=== PATIENT | male | born 1935 | race Caucasian/White ===

== ENCOUNTER 2017-02-17 08:20 | Emergency (ER) | payer OTHER ==
[~2017-02-17] VITALS: Ht 172.7 cm; Wt 75.1 kg
[~2017-02-17 08:20] MED LIST: AMBIEN10 MG PO; ATENOLOL25 MG PO; CLEOCIN HCL150 MG PO; LAC PO; LEVAQUIN750 MG PO; LISINOPRIL20 MG PO; MAGNESIUM OXID400 MG PO; [UNRECOGNIZED DRUG - OTHER] PO
[2017-02-17 09:16] LABS: PLATELET COUNT 310 x10^3mcL (130-400); RED CELL DISTRIBUTION WIDTH 14.2 % (11.5-14.5)
[2017-02-17 09:20] LABS: BASOPHIL % 2.2 % (0-2)
[2017-02-17 09:34] LABS: ALKALINE PHOSPHATASE 53 U/L (46-116); ALT/SGPT 14 U/L (16-63); AST/SGOT 13 U/L (15-37); BILIRUBIN TOTAL 0.3 mg/dL (0.20-1.00); CALCIUM 9.4 mg/dL (8.5-10.1); CARBON DIOXIDE 29.4 mmol/L (21-32); CHLORIDE SERUM 105 mmol/L (98-107); CHOLESTEROL 192 mg/dL (<200); CREATININE SERUM 0.9 mg/dL (0.7-1.3); GLUCOSE SERUM 104 mg/dL (74-106); HDL CHOLESTEROL 49 mg/dL (40-60); MAGNESIUM 1.8 mg/dL (1.8-2.4); POTASSIUM SERUM 3.9 mmol/L (3.5-5.1); SODIUM SERUM 143 mmol/L (136-145); TOTAL PROTEIN, SERUM 6.8 g/dL (6.4-8.2)
[2017-02-17 09:38] LABS: ALBUMIN 3.3 g/dL (3.4-5.0)
[2017-02-17 09:45] LABS: AMPHETAMINE QUAL UR NONE DETECTED (NEG <=1000)
[2017-02-17 11:12] VITALS: BP 131/91
== END 2017-02-17 11:12 | disposition home or self-care (01) ==
LOC: ED 08:20
PROVIDERS: Emergency Medicine
DX: R42 Dizziness and giddiness (principal); H53.8 Other visual disturbances; I10 Essential (primary) hypertension
CPT/HCPCS: 83880; J8597

== ENCOUNTER 2017-03-21 14:38 | Emergency (ER) | payer OTHER ==
[~2017-03-21] VITALS: Ht 172.7 cm; Wt 77.1 kg
[2017-03-21 16:54] VITALS: BP 131/88
== END 2017-03-21 16:54 | disposition home or self-care (01) ==
LOC: ED 14:38
DX: S05.02XA Injury of conjunctiva and corneal abrasion without foreign body, left eye, initial encounter (principal); S05.01XA Injury of conjunctiva and corneal abrasion without foreign body, right eye, initial encounter; I10 Essential (primary) hypertension; X58.XXXA Exposure to other specified factors, initial encounter; Y93.89 Activity, other specified; Y99.8 Other external cause status; Y92.89 Other specified places as the place of occurrence of the external cause
CPT/HCPCS: J7030; V2632

== ENCOUNTER 2017-07-25 14:26 | Inpatient (IN) | payer OTHER ==
[~2017-07-25] VITALS: Ht 167.6 cm; Wt 78.6 kg
[2017-07-25 15:12] LABS: BASOPHIL % 0.3 % (0-2); PLATELET COUNT 244 x10^3mcL (130-400)
[2017-07-25 15:16] LABS: CALCIUM 8.4 mg/dL (8.5-10.1); CARBON DIOXIDE 27.4 mmol/L (21-32); CHLORIDE SERUM 106 mmol/L (98-107); CREATININE SERUM 0.9 mg/dL (0.7-1.3); GLUCOSE SERUM 111 mg/dL (74-106); POTASSIUM SERUM 3.9 mmol/L (3.5-5.1); SODIUM SERUM 140 mmol/L (136-145)
[2017-07-25 15:17] LABS: RED CELL DISTRIBUTION WIDTH 14.6 % (11.5-14.5)
[2017-07-25 15:21] LABS: ALKALINE PHOSPHATASE 59 U/L (46-116); ALT/SGPT 25 U/L (16-63); AST/SGOT 21 U/L (15-37); BILIRUBIN TOTAL 0.7 mg/dL (0.20-1.00); TOTAL PROTEIN, SERUM 6.6 g/dL (6.4-8.2)
[2017-07-25 15:26] LABS: ALBUMIN 2.9 g/dL (3.4-5.0)
[2017-07-25 16:54] VITALS: BP 130/71
[2017-07-25 17:59] VITALS: BP 130/71
[2017-07-25 18:11] LABS: T3 TOTAL 0.92 ng/mL
[2017-07-25 18:12] LABS: MAGNESIUM 1.8 mg/dL (1.8-2.4); PHOSPHOROUS 2.1 mg/dL (2.5-4.9)
[2017-07-25 18:13] LABS: CHOLESTEROL/HDL RATIO 3.6
[2017-07-25 18:16] LABS: FREE T4 1.14 ng/dL (0.76-1.46); T4(THYROXINE) 8.1 ug/dL (4.7-13.3)
[2017-07-25 18:29] VITALS: BP 130/71
[2017-07-25 21:02] VITALS: BP 125/68
[2017-07-25 21:58] LABS: UA SPECIFIC GRAVITY 1.015 (1.005-1.035); microscopic required? YES; urine erythrocyte NEGATIVE (NEGATIVE)
[2017-07-26 05:48] VITALS: BP 116/62
[2017-07-26 06:28] LABS: CALCIUM 8.3 mg/dL (8.5-10.1); CARBON DIOXIDE 29.5 mmol/L (21-32); CHLORIDE SERUM 109 mmol/L (98-107); CREATININE SERUM 0.9 mg/dL (0.7-1.3); GLUCOSE SERUM 110 mg/dL (74-106); MAGNESIUM 1.9 mg/dL (1.8-2.4); PHOSPHOROUS 2.5 mg/dL (2.5-4.9); POTASSIUM SERUM 4.2 mmol/L (3.5-5.1); SODIUM SERUM 143 mmol/L (136-145)
[2017-07-26 06:29] LABS: BASOPHIL % 0.2 % (0-2); PLATELET COUNT 219 x10^3mcL (130-400)
[2017-07-26 06:44] LABS: RED CELL DISTRIBUTION WIDTH 15.5 % (11.5-14.5)
[2017-07-26 10:00] VITALS: BP 128/59
[2017-07-26 10:38] VITALS: Ht 167.6 cm; Wt 78.6 kg
[2017-07-27 07:50] LABS: BASOPHIL % 0.2 % (0-2); PLATELET COUNT 242 x10^3mcL (130-400)
[2017-07-27 07:58] LABS: CALCIUM 9.1 mg/dL (8.5-10.1); CARBON DIOXIDE 27.4 mmol/L (21-32); CHLORIDE SERUM 104 mmol/L (98-107); CREATININE SERUM 0.9 mg/dL (0.7-1.3); GLUCOSE SERUM 94 mg/dL (74-106); MAGNESIUM 1.7 mg/dL (1.8-2.4); PHOSPHOROUS 2.3 mg/dL (2.5-4.9); POTASSIUM SERUM 3.9 mmol/L (3.5-5.1); SODIUM SERUM 139 mmol/L (136-145)
[2017-07-27 08:08] LABS: RED CELL DISTRIBUTION WIDTH 15.4 % (11.5-14.5)
== END 2017-07-26 11:35 | disposition left against medical advice (07) | DRG 177 ==
LOC: ED 14:26 → DU 15:54
PROVIDERS: Emergency Medicine; Family Medicine; ADMIT Family Medicine
DX: J69.0 Pneumonitis due to inhalation of food and vomit (principal); J96.00 Acute respiratory failure, unspecified whether with hypoxia or hypercapnia; N17.0 Acute kidney failure with tubular necrosis; E87.1 Hypo-osmolality and hyponatremia; E44.0 Moderate protein-calorie malnutrition; E83.42 Hypomagnesemia; E83.39 Other disorders of phosphorus metabolism; R73.03 Prediabetes; E86.0 Dehydration; E87.8 Other disorders of electrolyte and fluid balance, not elsewhere classified; R31.9 Hematuria, unspecified; D64.9 Anemia, unspecified; Z68.28 Body mass index [BMI] 28.0-28.9, adult
CPT/HCPCS: 36600; 83880; 84439; J1956; J3490; J7030; J7613; J7620; J7644

== ENCOUNTER 2017-07-26 13:30 | Emergency (ER) | payer OTHER ==
[2017-07-26 16:45] LABS: microscopic required? YES; urine erythrocyte 1+ (NEGATIVE)
[2017-07-26 16:51] LABS: BASOPHIL % 0.2 % (0-2); PLATELET COUNT 229 x10^3mcL (130-400)
[2017-07-26 16:52] LABS: RED CELL DISTRIBUTION WIDTH 15.1 % (11.5-14.5)
[2017-07-26 17:04] LABS: CARBON DIOXIDE 25.2 mmol/L (21-32); CHLORIDE SERUM 102 mmol/L (98-107); CREATININE SERUM 0.8 mg/dL (0.7-1.3); GLUCOSE SERUM 98 mg/dL (74-106); POTASSIUM SERUM 3.9 mmol/L (3.5-5.1); SODIUM SERUM 134 mmol/L (136-145)
[2017-07-26 17:12] LABS: ALKALINE PHOSPHATASE 47 U/L (46-116); ALT/SGPT 18 U/L (16-63); AST/SGOT 14 U/L (15-37); BILIRUBIN TOTAL 1.08 mg/dL (0.20-1.00); TOTAL PROTEIN, SERUM 7.1 g/dL (6.4-8.2)
[2017-07-26 17:18] LABS: T3 TOTAL 0.67 ng/mL
[2017-07-26 17:41] LABS: C REACTIVE PROTEIN 25.8 mg/dL (<=0.9)
[2017-07-26 17:50] LABS: ERYTHROCYTE SED RATE 34 mm/hr (0-20)
[2017-07-26 18:10] LABS: CHOLESTEROL/HDL RATIO 2.9; MAGNESIUM 1.9 mg/dL (1.8-2.4); PHOSPHOROUS 2.6 mg/dL (2.5-4.9)
[2017-07-26 18:14] LABS: FREE T4 1.2 ng/dL (0.76-1.46); FREE THYROXINE INDEX 2.8 ug/dL (1.4-4.5); T4(THYROXINE) 8.2 ug/dL (4.7-13.3)
[2017-07-26 19:32] LABS: CK-MB 0.5 ng/mL (0-3.6)
[2017-07-27 05:08] LABS: BASOPHIL % 0.4 % (0-2); PLATELET COUNT 217 x10^3mcL (130-400)
[2017-07-27 05:10] LABS: RED CELL DISTRIBUTION WIDTH 15.4 % (11.5-14.5)
[2017-07-27 05:12] LABS: CALCIUM 8.4 mg/dL (8.5-10.1); CARBON DIOXIDE 27.9 mmol/L (21-32); CHLORIDE SERUM 106 mmol/L (98-107); CREATININE SERUM 0.8 mg/dL (0.7-1.3); GLUCOSE SERUM 97 mg/dL (74-106); POTASSIUM SERUM 3.9 mmol/L (3.5-5.1); SODIUM SERUM 138 mmol/L (136-145)
[2017-07-27 10:37] VITALS: BP 127/90
== END 2017-07-27 12:00 | disposition left against medical advice (07) ==
LOC: ED 13:30
PROVIDERS: Family Medicine; Specialist
DX: J18.9 Pneumonia, unspecified organism (principal); R09.02 Hypoxemia; H53.8 Other visual disturbances; I10 Essential (primary) hypertension
CPT/HCPCS: 36600; 83880; 84439; J1956; J3490; J7030; Q0092

== ENCOUNTER 2017-08-09 13:51 | Emergency (ER) | payer OTHER ==
[~2017-08-09] VITALS: Ht 167.6 cm; Wt 75.9 kg
[2017-08-09 13:56] VITALS: BP 136/77
== END 2017-08-09 15:06 | disposition left against medical advice (07) ==
LOC: ED 13:51
DX: R06.02 Shortness of breath (principal); Z53.21 Procedure and treatment not carried out due to patient leaving prior to being seen by health care provider

== ENCOUNTER 2018-07-08 10:37 | Emergency (ER) | payer OTHER ==
[~2018-07-08] VITALS: Ht 170.2 cm; Wt 80.7 kg
[2018-07-08 10:40] VITALS: Ht 170.2 cm; Wt 80.7 kg
[2018-07-08 13:03] VITALS: BP 124/76
== END 2018-07-08 13:03 | disposition home or self-care (01) ==
LOC: ED 10:37
DX: S61.451A Open bite of right hand, initial encounter (principal); I10 Essential (primary) hypertension; W54.0XXA Bitten by dog, initial encounter; Y93.89 Activity, other specified; Y92.89 Other specified places as the place of occurrence of the external cause; Y99.8 Other external cause status
CPT/HCPCS: 90715; J0295; J2001; J3010

== ENCOUNTER 2018-07-09 09:38 | Emergency (ER) | payer OTHER ==
[~2018-07-09] VITALS: Ht 167.6 cm; Wt 80.7 kg
[2018-07-09 09:44] VITALS: BP 123/67; Ht 167.6 cm; Wt 80.7 kg
== END 2018-07-09 10:29 | disposition home or self-care (01) ==
LOC: ED 09:38
DX: S61.411D Laceration without foreign body of right hand, subsequent encounter (principal); I10 Essential (primary) hypertension; W54.0XXD Bitten by dog, subsequent encounter

== ENCOUNTER 2018-07-18 07:14 | Inpatient (IN) | payer OTHER ==
[~2018-07-18] VITALS: Ht 165.1 cm; Wt 68.0 kg
[2018-07-18 07:25] VITALS: Ht 165.1 cm; Wt 68.0 kg
[2018-07-18 07:59] LABS: microscopic required? NO
[2018-07-18 08:01] LABS: BASOPHIL % 0.9 % (0-2); PLATELET COUNT 301 x10^3mcL (130-400); RED CELL DISTRIBUTION WIDTH 14.3 % (11.5-14.5)
[2018-07-18 08:26] LABS: ALKALINE PHOSPHATASE 66 U/L (46-116); ALT/SGPT 16 U/L (16-63); AMYLASE 71 U/L (25-115); AST/SGOT 15 U/L (15-37); BILIRUBIN TOTAL 0.32 mg/dL (0.20-1.00); CHLORIDE SERUM 103 mmol/L (98-107); CHOLESTEROL 166 mg/dL (<200); GLUCOSE SERUM 98 mg/dL (74-106); HDL CHOLESTEROL 45 mg/dL (40-60); LIPASE 221 IU/L (73-393); POTASSIUM SERUM 4.8 mmol/L (3.5-5.1); SODIUM SERUM 141 mmol/L (136-145); TOTAL PROTEIN, SERUM 6.7 g/dL (6.4-8.2)
[2018-07-18 08:30] LABS: ALBUMIN 2.9 g/dL (3.4-5.0)
[2018-07-18 09:04] LABS: AMPHETAMINE QUAL UR NONE DETECTED (See below)
[2018-07-18 09:23] LABS: UA SPECIFIC GRAVITY 1.015 (1.005-1.035); urine erythrocyte NEGATIVE (NEGATIVE)
[2018-07-18 09:49] LABS: MAGNESIUM 1.8 mg/dL (1.8-2.4)
[2018-07-18 11:52] VITALS: BP 137/83
[2018-07-18 12:18] LABS: CHOLESTEROL/HDL RATIO 3.7
[2018-07-18 12:44] VITALS: BP 137/70
[2018-07-18 16:31] VITALS: BP 106/64
[2018-07-18 20:10] VITALS: BP 104/60
[2018-07-19 05:43] VITALS: BP 104/53
[2018-07-19 06:06] LABS: BASOPHIL % 0.5 % (0-2); PLATELET COUNT 266 x10^3mcL (130-400)
[2018-07-19 06:08] LABS: CALCIUM 8.4 mg/dL (8.5-10.1); CARBON DIOXIDE 30.1 mmol/L (21-32); CHLORIDE SERUM 105 mmol/L (98-107); CREATININE SERUM 0.9 mg/dL (0.7-1.3); GLUCOSE SERUM 82 mg/dL (74-106); MAGNESIUM 1.8 mg/dL (1.8-2.4); PHOSPHOROUS 3.2 mg/dL (2.5-4.9); POTASSIUM SERUM 4.3 mmol/L (3.5-5.1); SODIUM SERUM 141 mmol/L (136-145)
[2018-07-19 06:10] LABS: RED CELL DISTRIBUTION WIDTH 14.6 % (11.5-14.5)
[2018-07-19 10:21] VITALS: BP 123/69
[2018-07-19] MEDS ORDERED: KEF500 PO (12:49)
[2018-07-19] MEDS ORDERED: RES15 PO (12:50)
[2018-07-19 14:02] VITALS: BP 100/68
== END 2018-07-19 15:20 | disposition home or self-care (01) | DRG 124 ==
LOC: ED 07:14 → DU 10:21
PROVIDERS: Emergency Medicine; Internal Medicine
DX: H35.30 Unspecified macular degeneration (principal); N17.0 Acute kidney failure with tubular necrosis; I45.2 Bifascicular block; E44.0 Moderate protein-calorie malnutrition; H27.03 Aphakia, bilateral; R00.1 Bradycardia, unspecified; E78.5 Hyperlipidemia, unspecified; I10 Essential (primary) hypertension; Z68.27 Body mass index [BMI] 27.0-27.9, adult; H91.90 Unspecified hearing loss, unspecified ear; Z87.891 Personal history of nicotine dependence
CPT/HCPCS: 82962; 83880; Q0092

== ENCOUNTER 2018-07-24 13:53 | Emergency (ER) | payer OTHER ==
[~2018-07-24] VITALS: Ht 170.2 cm; Wt 66.2 kg
[~2018-07-24 13:53] MED LIST changes: +KEF500 PO; +RES15 PO
[2018-07-24 13:58] VITALS: BP 124/69; Ht 170.2 cm; Wt 66.2 kg
== END 2018-07-24 16:07 | disposition home or self-care (01) ==
LOC: ED 13:53
DX: M40.294 Other kyphosis, thoracic region (principal); H35.30 Unspecified macular degeneration; I10 Essential (primary) hypertension
CPT/HCPCS: 72072

== ENCOUNTER 2018-09-11 09:49 | Emergency (ER) | payer OTHER ==
[~2018-09-11] VITALS: Ht 170.2 cm; Wt 68.0 kg
[2018-09-11 10:52] LABS: microscopic required? NO
[2018-09-11 10:58] LABS: UA SPECIFIC GRAVITY 1.015 (1.005-1.035); urine erythrocyte NEGATIVE (NEGATIVE)
[2018-09-11 10:59] LABS: BASOPHIL % 0.4 % (0-2); PLATELET COUNT 272 x10^3mcL (130-400); RED CELL DISTRIBUTION WIDTH 14.2 % (11.5-14.5)
[2018-09-11 11:06] LABS: CARBON DIOXIDE 31.1 mmol/L (21-32); CHLORIDE SERUM 100 mmol/L (98-107); CREATININE SERUM 1.1 mg/dL (0.7-1.3); GLUCOSE SERUM 97 mg/dL (74-106); POTASSIUM SERUM 3.8 mmol/L (3.5-5.1); SODIUM SERUM 139 mmol/L (136-145)
[2018-09-11 11:26] VITALS: BP 116/69
== END 2018-09-11 11:26 | disposition home or self-care (01) ==
LOC: ED 09:49
PROVIDERS: Emergency Medicine
DX: H35.30 Unspecified macular degeneration (principal); M54.5 Low back pain; I10 Essential (primary) hypertension; Z98.890 Other specified postprocedural states
CPT/HCPCS: 36415

== ENCOUNTER 2018-10-09 17:25 | Emergency (ER) | payer OTHER ==
[~2018-10-09] VITALS: Ht 167.6 cm; Wt 81.6 kg
[2018-10-09 17:29] VITALS: Ht 167.6 cm; Wt 81.6 kg
[2018-10-09 23:10] LABS: BASOPHIL % 0.1 % (0-2); PLATELET COUNT 334 x10^3mcL (130-400); RED CELL DISTRIBUTION WIDTH 13.2 % (11.5-14.5)
[2018-10-09 23:19] LABS: CALCIUM 9.2 mg/dL (8.5-10.1); CARBON DIOXIDE 29.7 mmol/L (21-32); CHLORIDE SERUM 102 mmol/L (98-107); CREATININE SERUM 1.1 mg/dL (0.7-1.3); GLUCOSE SERUM 141 mg/dL (74-106); POTASSIUM SERUM 3.3 mmol/L (3.5-5.1); SODIUM SERUM 140 mmol/L (136-145)
[2018-10-09 23:24] LABS: ALKALINE PHOSPHATASE 73 U/L (46-116); ALT/SGPT 12 U/L (16-63); AST/SGOT 11 U/L (15-37); BILIRUBIN TOTAL 0.3 mg/dL (0.20-1.00); TOTAL PROTEIN, SERUM 6.9 g/dL (6.4-8.2)
[2018-10-09 23:24] LABS: AMPHETAMINE QUAL UR NONE DETECTED (See below)
[2018-10-09 23:39] LABS: ALBUMIN 3.3 g/dL (3.4-5.0)
[2018-10-10 09:13] VITALS: BP 136/77
== END 2018-10-10 10:13 | disposition home or self-care (01) ==
LOC: ED 17:25
PROVIDERS: Emergency Medicine
DX: F43.20 Adjustment disorder, unspecified (principal); I10 Essential (primary) hypertension
CPT/HCPCS: 36415; G0480

== ENCOUNTER 2018-10-13 01:15 | Emergency (ER) | payer OTHER ==
[~2018-10-13] VITALS: Ht 167.6 cm; Wt 81.6 kg
[2018-10-13 01:24] VITALS: Ht 167.6 cm; Wt 81.6 kg
[2018-10-13 02:07] LABS: BASOPHIL % 0.4 % (0-2); PLATELET COUNT 300 x10^3mcL (130-400)
[2018-10-13 02:16] LABS: CALCIUM 8.3 mg/dL (8.5-10.1); CARBON DIOXIDE 30.4 mmol/L (21-32); CHLORIDE SERUM 104 mmol/L (98-107); GLUCOSE SERUM 105 mg/dL (74-106); POTASSIUM SERUM 3.7 mmol/L (3.5-5.1); SODIUM SERUM 142 mmol/L (136-145)
[2018-10-13 02:21] LABS: ALKALINE PHOSPHATASE 76 U/L (46-116); ALT/SGPT 10 U/L (16-63); AST/SGOT 12 U/L (15-37); BILIRUBIN TOTAL 0.38 mg/dL (0.20-1.00); LIPASE 163 IU/L (73-393)
[2018-10-13 02:23] LABS: ALBUMIN 2.7 g/dL (3.4-5.0); TOTAL PROTEIN, SERUM 5.9 g/dL (6.4-8.2)
[2018-10-13 03:20] VITALS: BP 140/86
== END 2018-10-13 04:00 | disposition home or self-care (01) ==
LOC: ED 01:15
PROVIDERS: Emergency Medicine
DX: R10.84 Generalized abdominal pain (principal); I10 Essential (primary) hypertension; Z86.69 Personal history of other diseases of the nervous system and sense organs
CPT/HCPCS: 36415

== ENCOUNTER 2018-10-14 11:44 | Emergency (ER) | payer OTHER ==
[~2018-10-14] VITALS: Ht 167.6 cm; Wt 81.6 kg
[2018-10-14 11:47] VITALS: BP 120/91; Ht 167.6 cm; Wt 81.6 kg
== END 2018-10-14 12:58 | disposition left against medical advice (07) ==
LOC: ED 11:44
DX: I10 Essential (primary) hypertension (principal); F41.9 Anxiety disorder, unspecified; H35.30 Unspecified macular degeneration

== ENCOUNTER 2018-10-26 21:40 | Emergency (ER) | payer OTHER ==
[~2018-10-26] VITALS: Ht 175.3 cm; Wt 72.6 kg
[2018-10-26 22:44] VITALS: BP 128/72; Ht 175.3 cm; Wt 72.6 kg
[2018-10-26 23:25] LABS: microscopic required? NO
[2018-10-26 23:40] LABS: BASOPHIL % 1.3 % (0-2)
[2018-10-26 23:41] LABS: UA SPECIFIC GRAVITY 1.015 (1.005-1.035); urine erythrocyte NEGATIVE (NEGATIVE)
[2018-10-26 23:43] LABS: PLATELET COUNT 409 x10^3mcL (130-400)
[2018-10-26 23:51] LABS: CALCIUM 9.1 mg/dL (8.5-10.1); CARBON DIOXIDE 31.1 mmol/L (21-32); CHLORIDE SERUM 100 mmol/L (98-107); GLUCOSE SERUM 112 mg/dL (74-106); POTASSIUM SERUM 3.9 mmol/L (3.5-5.1); SODIUM SERUM 138 mmol/L (136-145)
[2018-10-27] LABS: ALKALINE PHOSPHATASE 56 U/L (46-116); ALT/SGPT 13 U/L (16-63); AST/SGOT 18 U/L (15-37); BILIRUBIN TOTAL 0.2 mg/dL (0.20-1.00); TOTAL PROTEIN, SERUM 6.4 g/dL (6.4-8.2)
[2018-10-27 00:01] LABS: ALBUMIN 2.8 g/dL (3.4-5.0)
== END 2018-10-27 03:08 | disposition home or self-care (01) ==
LOC: ED 21:40
PROVIDERS: Emergency Medicine
DX: R10.2 Pelvic and perineal pain (principal); M54.5 Low back pain; I10 Essential (primary) hypertension; Z90.89 Acquired absence of other organs
CPT/HCPCS: J1885

== ENCOUNTER 2018-11-06 22:23 | Emergency (ER) | payer OTHER ==
[2018-11-06 23:47] LABS: BASOPHIL % 0.3 % (0-2); PLATELET COUNT 376 x10^3mcL (130-400); RED CELL DISTRIBUTION WIDTH 13.3 % (11.5-14.5)
[2018-11-06 23:48] LABS: microscopic required? NO
[2018-11-06 23:55] LABS: UA SPECIFIC GRAVITY 1.025 (1.005-1.035); urine erythrocyte NEGATIVE (NEGATIVE)
[2018-11-07 00:06] LABS: CALCIUM 8.6 mg/dL (8.5-10.1); CARBON DIOXIDE 26.5 mmol/L (21-32); CHLORIDE SERUM 100 mmol/L (98-107); CREATININE SERUM 1.1 mg/dL (0.7-1.3); GLUCOSE SERUM 100 mg/dL (74-106); POTASSIUM SERUM 3.7 mmol/L (3.5-5.1); SODIUM SERUM 136 mmol/L (136-145)
[2018-11-07 00:11] LABS: ALKALINE PHOSPHATASE 56 U/L (46-116); ALT/SGPT 16 U/L (16-63); AST/SGOT 15 U/L (15-37); BILIRUBIN TOTAL 0.1 mg/dL (0.20-1.00); TOTAL PROTEIN, SERUM 6.5 g/dL (6.4-8.2)
[2018-11-07 00:12] LABS: ALBUMIN 2.8 g/dL (3.4-5.0)
[2018-11-07 01:30] VITALS: BP 142/86
== END 2018-11-07 01:30 | disposition home or self-care (01) ==
LOC: ED 22:23
PROVIDERS: Emergency Medicine
DX: R10.2 Pelvic and perineal pain (principal); I10 Essential (primary) hypertension
CPT/HCPCS: 36415; J2270

== ENCOUNTER 2018-11-24 19:14 | Emergency (ER) | payer OTHER ==
[~2018-11-24] VITALS: Ht 167.6 cm; Wt 66.2 kg
[2018-11-24 20:01] VITALS: Ht 167.6 cm; Wt 66.2 kg
[2018-11-24 21:13] LABS: CALCIUM 8.7 mg/dL (8.5-10.1); CARBON DIOXIDE 28.5 mmol/L (21-32); CHLORIDE SERUM 104 mmol/L (98-107); GLUCOSE SERUM 107 mg/dL (74-106); SODIUM SERUM 140 mmol/L (136-145)
[2018-11-24 21:24] LABS: ALKALINE PHOSPHATASE 73 U/L (46-116); ALT/SGPT 11 U/L (16-63); AST/SGOT 12 U/L (15-37); BILIRUBIN TOTAL 0.47 mg/dL (0.20-1.00); MAGNESIUM 1.7 mg/dL (1.8-2.4); TOTAL PROTEIN, SERUM 6.5 g/dL (6.4-8.2)
[2018-11-24 21:25] LABS: ALBUMIN 2.9 g/dL (3.4-5.0)
[2018-11-24 22:15] LABS: AMPHETAMINE QUAL UR NONE DETECTED (See below)
[2018-11-24 22:44] VITALS: BP 120/66
== END 2018-11-24 23:03 | disposition home or self-care (01) ==
LOC: ED 19:14
PROVIDERS: Specialist
DX: F41.9 Anxiety disorder, unspecified (principal); I10 Essential (primary) hypertension; R05 Cough
CPT/HCPCS: J1885; J2060

== ENCOUNTER 2018-11-27 21:39 | Emergency (ER) | payer OTHER ==
[~2018-11-27] VITALS: Ht 167.6 cm; Wt 81.6 kg
[2018-11-27 21:45] VITALS: Ht 167.6 cm; Wt 81.6 kg
[2018-11-28 00:40] VITALS: BP 124/69
== END 2018-11-28 01:06 | disposition home or self-care (01) ==
LOC: ED 21:39
DX: R35.0 Frequency of micturition (principal); F41.9 Anxiety disorder, unspecified; I10 Essential (primary) hypertension; Z90.89 Acquired absence of other organs
CPT/HCPCS: J1885

== ENCOUNTER 2018-12-04 12:55 | Emergency (ER) | payer OTHER ==
[~2018-12-04] VITALS: Ht 167.6 cm; Wt 69.9 kg
[2018-12-04 12:59] VITALS: Ht 167.6 cm; Wt 69.9 kg
[2018-12-04 14:40] VITALS: BP 150/77
== END 2018-12-04 14:40 | disposition home or self-care (01) ==
LOC: ED 12:55
DX: R10.2 Pelvic and perineal pain (principal); H54.7 Unspecified visual loss; I10 Essential (primary) hypertension; F41.9 Anxiety disorder, unspecified
CPT/HCPCS: 82962

== ENCOUNTER 2018-12-12 13:42 | Emergency (ER) | payer OTHER ==
[~2018-12-12] VITALS: Ht 167.6 cm; Wt 60.0 kg
[2018-12-12 18:05] VITALS: BP 134/76
== END 2018-12-12 18:05 | disposition left against medical advice (07) ==
LOC: ED 13:42
DX: R10.30 Lower abdominal pain, unspecified (principal); H53.8 Other visual disturbances; I10 Essential (primary) hypertension; F41.9 Anxiety disorder, unspecified; Z90.89 Acquired absence of other organs

== ENCOUNTER 2018-12-24 13:36 | Emergency (ER) | payer OTHER ==
[~2018-12-24] VITALS: Ht 167.6 cm; Wt 65.8 kg
[2018-12-24 13:57] VITALS: Ht 167.6 cm; Wt 65.8 kg
[2018-12-24 14:27] LABS: microscopic required? YES; urine erythrocyte NEGATIVE (NEGATIVE)
[2018-12-24 15:45] VITALS: BP 156/74
== END 2018-12-24 15:45 | disposition home or self-care (01) ==
LOC: ED 13:36
PROVIDERS: Specialist
DX: Z13.89 Encounter for screening for other disorder (principal); R10.2 Pelvic and perineal pain; I10 Essential (primary) hypertension; F41.9 Anxiety disorder, unspecified; Z90.89 Acquired absence of other organs
CPT/HCPCS: J1885

== ENCOUNTER 2018-12-24 16:02 | Emergency (ER) | payer OTHER ==
[~2018-12-24] VITALS: Ht 167.6 cm; Wt 65.8 kg
[2018-12-24 16:12] VITALS: Ht 167.6 cm; Wt 65.8 kg
[2018-12-24 16:48] VITALS: BP 153/79
== END 2018-12-24 16:48 | disposition home or self-care (01) ==
LOC: ED 16:02
DX: Z13.89 Encounter for screening for other disorder (principal); R10.2 Pelvic and perineal pain; I10 Essential (primary) hypertension; Z90.89 Acquired absence of other organs

== ENCOUNTER 2018-12-28 13:24 | Emergency (ER) | payer OTHER ==
[~2018-12-28] VITALS: Ht 167.6 cm; Wt 65.4 kg
[2018-12-28 13:31] VITALS: BP 153/75; Ht 167.6 cm; Wt 65.4 kg
== END 2018-12-28 16:00 | disposition home or self-care (01) ==
LOC: ED 13:24
DX: R10.30 Lower abdominal pain, unspecified (principal); I10 Essential (primary) hypertension

== ENCOUNTER 2018-12-30 09:46 | Emergency (ER) | payer OTHER ==
[~2018-12-30] VITALS: Ht 167.6 cm; Wt 83.9 kg
[2018-12-30 09:54] VITALS: Ht 167.6 cm; Wt 83.9 kg
[2018-12-30 10:42] LABS: CALCIUM 8.6 mg/dL (8.5-10.1); CARBON DIOXIDE 30.1 mmol/L (21-32); CHLORIDE SERUM 103 mmol/L (98-107); CREATININE SERUM 0.8 mg/dL (0.7-1.3); GLUCOSE SERUM 117 mg/dL (74-106); POTASSIUM SERUM 4.1 mmol/L (3.5-5.1); SODIUM SERUM 139 mmol/L (136-145)
[2018-12-30 10:47] LABS: ALKALINE PHOSPHATASE 70 U/L (46-116); ALT/SGPT 13 U/L (16-63); AST/SGOT 11 U/L (15-37); BILIRUBIN TOTAL 0.69 mg/dL (0.20-1.00); TOTAL PROTEIN, SERUM 6.3 g/dL (6.4-8.2)
[2018-12-30 10:51] LABS: BASOPHIL % 0.2 % (0-2); PLATELET COUNT 342 x10^3mcL (130-400); RED CELL DISTRIBUTION WIDTH 14.3 % (11.5-14.5)
[2018-12-30 13:30] VITALS: BP 172/84
== END 2018-12-30 13:30 | disposition home or self-care (01) ==
LOC: ED 09:46
PROVIDERS: Emergency Medicine
DX: R07.89 Other chest pain (principal); R06.02 Shortness of breath; R11.10 Vomiting, unspecified; R10.9 Unspecified abdominal pain; I10 Essential (primary) hypertension
CPT/HCPCS: 36415; Q0092

== ENCOUNTER 2019-01-07 12:59 | Emergency (ER) | payer OTHER ==
[~2019-01-07] VITALS: Ht 177.8 cm; Wt 64.4 kg
[2019-01-07 15:17] VITALS: BP 135/74
== END 2019-01-07 15:17 | disposition home or self-care (01) ==
LOC: ED 12:59
DX: G89.29 Other chronic pain (principal); N42.81 Prostatodynia syndrome; I10 Essential (primary) hypertension

== ENCOUNTER 2019-01-27 20:48 | Inpatient (IN) | payer OTHER ==
[~2019-01-27] VITALS: Ht 167.6 cm; Wt 66.2 kg
[2019-01-27 21:05] VITALS: Ht 167.6 cm; Wt 66.2 kg
--- NOTE | 2019-01-27 21:06 | NUR ---
PT BIB [facility] FOR ALOC. PER MEDICS PT'S ROOM MATE CALLED 911 BECAUSE THEY HEARD A THUD AND THE PT WAS ON THE FLOOR ACTING ALTERED. PT INTIAL GCS WAS AN 10 PER MEDICS BUT ENROUTE THE PT BEGAN TO TALK AND HIS GCS IS NOW A 14. PT IS CONFUSED AND HAS CLEAR SPEACH. PT DENIES ANY INJURIES NOR ARE ANY INJURIES NOTED ON THE PT. PT IS A&O X 2/ PT IS UNAWARE OF THE YEAR AND UNABLE TO RECALL THE EVENTS TO WHY HE IS IN THE HOSPITAL. PT DENIES ANY OTHER COMPLAINTS. VITAL SIGNS STABLE. RESPIRATRIONS EVEN AND UNLABORED. NO ACUTE DISTRESS NOTED. DR. MARIO AT BEDSIDE FOR MSE.
[2019-01-27 21:32] LABS: BASOPHIL % 0.5 % (0-2); PLATELET COUNT 240 x10^3mcL (130-400); RED CELL DISTRIBUTION WIDTH 14.1 % (11.5-14.5)
[2019-01-27 21:48] LABS: CALCIUM 8.5 mg/dL (8.5-10.1); CARBON DIOXIDE 21.8 mmol/L (21-32); CHLORIDE SERUM 103 mmol/L (98-107); CREATININE SERUM 1.2 mg/dL (0.7-1.3); GLUCOSE SERUM 129 mg/dL (74-106); POTASSIUM SERUM 3.9 mmol/L (3.5-5.1); SODIUM SERUM 140 mmol/L (136-145)
[2019-01-27 21:59] LABS: ALKALINE PHOSPHATASE 84 U/L (46-116); ALT/SGPT 17 U/L (16-63); AST/SGOT 14 U/L (15-37); BILIRUBIN TOTAL 0.27 mg/dL (0.20-1.00); FREE T4 1.05 ng/dL (0.76-1.46); LIPASE 190 IU/L (73-393); TOTAL PROTEIN, SERUM 6.6 g/dL (6.4-8.2)
[2019-01-27 22:03] LABS: ALBUMIN 3.3 g/dL (3.4-5.0)
--- NOTE | 2019-01-27 22:41 | NUR ---
MEDICATION ADMINISTERED PER MD ORDER
[2019-01-27 23:47] LABS: microscopic required? YES
[2019-01-27 23:48] LABS: urine erythrocyte TRACE (NEGATIVE)
[2019-01-27 23:49] LABS: AMPHETAMINE QUAL UR NONE DETECTED (See below)
--- NOTE | 2019-01-28 01:36 | NUR ---
PT MEDICATED FOR PAIN PER MD ORDERED. VITAL SIGNS STABLE. RESPIRATIONS EVEN AND UNLABORED. NO ACUTE DISTRESS NOTED.
--- NOTE | 2019-01-28 01:50 | NUR ---
REPORT GIVEN TO AMINTA ON [facility] FOR CONTINUATION OF CARE.
[2019-01-28 02:02] LABS: CHOLESTEROL/HDL RATIO 2.9; PHOSPHOROUS 3.7 mg/dL (2.5-4.9)
[2019-01-28 02:26] VITALS: BP 152/86
--- NOTE | 2019-01-28 02:49 | NUR ---
ADMITTED AN 83 YEARS OLD MALE AWAKE, ORIENTED TO PLACE AND PERSON ONLY. CAME IN VIA GURNEY ACCOMPANIED BY ER STAFF WITH C/O ALOC. TELE# 20 SB WITH PAC ON MONITOR. NO INDICATION OF CHEST DISCOMFORT NOTED. C/O THROAT PAIN MEDICATED IN ER WITH TORADOL 15MG IVP. KEPT IN COMFORT AND ORIENTED PATIENT TO ROOM AND DEVICES. WILL CONTINUE TO MONITOR. BED ALARM ON AND BED TO LOWEST POSITION.
--- NOTE | 2019-01-28 03:27 | NUR ---
APPEARS SLEEPING WITH EYES CLOSED THIS TIME, NO SIGN OF ACUTE RESPIRATORY DISTRESS NOTED.
--- NOTE | 2019-01-28 05:12 | NUR ---
SLEPT AT LONG INTERVALS WITH NO SIGN OF DISTRESS NOTED. ALL NEEDS ATTENDED.
[2019-01-28 05:55] VITALS: BP 148/66
[2019-01-28 07:03] LABS: CALCIUM 8.7 mg/dL (8.5-10.1); CARBON DIOXIDE 23.7 mmol/L (21-32); CHLORIDE SERUM 107 mmol/L (98-107); GLUCOSE SERUM 88 mg/dL (74-106); POTASSIUM SERUM 3.8 mmol/L (3.5-5.1); SODIUM SERUM 141 mmol/L (136-145)
[2019-01-28 07:16] LABS: BASOPHIL % 0.4 % (0-2); PLATELET COUNT 228 x10^3mcL (130-400)
--- NOTE | 2019-01-28 09:08 | NUR ---
RECEIVED CALL FROM [facility] TO NOTIFY THAT PT HR IS IN MID TO HIGH 40'S. DR GARCIA PAGED. ENDORSED FROM TRAIN DISPATCHER THAT WAS MADE AWARE DURING TRAIN DISPATCHER.
[2019-01-28 09:43] VITALS: BP 146/70
[2019-01-28 13:01] VITALS: BP 127/63
--- NOTE | 2019-01-28 13:12 | NUR ---
IN TO ASSESS PATIENT NEEDS BEFORE LUNCH. PT RESTING COMFORTABLY IN BED TRYING TO MAKE A PHONE CALL. ENTERED IN TELEPHONE NUMBER AND PROVIDED ORANGE JUICE PER PATIENT REQUEST. ALL OTHER NEEDS MET.
--- NOTE | 2019-01-28 14:24 | NUR ---
PT WANTS TO AMA, AND PT DOESN'T WANT TO SPEAK TO DR AT THIS TIME PT STATE, "DOESN'T MATTER WHAT DOCTOR SAID I AM LEAVING. I DONT WANT TO TALK TO THEM. AMA PAPER SIGNED BY PT. CALLED EMERGENCY VENDING SUPERVISOR MARLA. INFORM DR. GARCIA.
--- NOTE | 2019-01-28 14:30 | NUR ---
UPON RETURNING FROM LUNCH I FOUND THE PATIENT AT THE NURSES STATION STATING THAT HE MUST LEAVE BECAUSE HE IS GOING BLIND FROM OUR AIR CONDITIONING SYSTEM. HE CLAIMS THIS HAPPENS TO HIM EVERY TIME HE IS ADMITTED TO THE HOSPITAL AND HE MUST GO OUTSIDE FOR A COUPLE OF HOURS FOR HIS VISION TO COME BACK. THE PATIENT WAS ENCOURAGED SEVERAL TIMES BY SEVERAL NURSES TO GO BACK TO HIS ROOM BUT HE REFUSED. DR GARCIA CALLED TO COME SPEAK WITH THE PATIENT. THE PATIENT'S ROOM MATE MARLA WAS CALLED TO PICK HIM UP AND SHE STATED SHE WOULD BE HERE AT THREE. THE PATIENT SIGNED THE AMA FORM AND WAS ENCOURAGED TO WAIT FOR MARLA IN HIS ROOM BUT HE REFUSED. THE PATIENT WAS TAKEN BACK TO HIS ROOM WHERE HE CHANGED HIS CLOTHING. DR GARCIA DISCUSSED THE RISKS OF LEAVING AGAINST MEDICAL ADVICE AND THE PATIENT VERBALIZED UNDERSTANDING AND REPEATED ALL RISKS BUT CONTINUED TO INSIST ON LEAVING. THE IV AND ARM BAND WERE REMOVED AND THE PATIENT WAS ESCORTED TO THE LOBBY WHERE HE INSISTED ON WAITING FOR HIS RIDE.
== END 2019-01-28 14:33 | disposition left against medical advice (07) | DRG 70 ==
LOC: ED 20:48 → DU 01-28 00:31
PROVIDERS: Emergency Medicine; ADMIT Internal Medicine
DX: G93.41 Metabolic encephalopathy (principal); N17.0 Acute kidney failure with tubular necrosis; E87.2 Acidosis; E44.1 Mild protein-calorie malnutrition; E86.0 Dehydration; I10 Essential (primary) hypertension; R80.9 Proteinuria, unspecified; Z68.23 Body mass index [BMI] 23.0-23.9, adult
CPT/HCPCS: 83880; 84439; 87804; G0480; J1885; J2543; J7030; Q0092

== ENCOUNTER 2019-03-05 11:50 | Emergency (ER) | payer OTHER ==
[~2019-03-05] VITALS: Ht 167.6 cm; Wt 62.4 kg
[2019-03-05 11:56] VITALS: BP 119/68; Ht 167.6 cm; Wt 62.4 kg
== END 2019-03-05 13:07 | disposition home or self-care (01) ==
LOC: ED 11:50
DX: R05 Cough (principal); R09.81 Nasal congestion; I10 Essential (primary) hypertension; Z90.89 Acquired absence of other organs

== ENCOUNTER 2019-05-24 11:52 | Emergency (ER) | payer OTHER ==
[~2019-05-24] VITALS: Ht 167.6 cm; Wt 66.7 kg
[2019-05-24 12:15] VITALS: BP 157/75; Ht 167.6 cm; Wt 66.7 kg
== END 2019-05-24 13:30 | disposition left against medical advice (07) ==
LOC: ED 11:52
DX: Z53.21 Procedure and treatment not carried out due to patient leaving prior to being seen by health care provider (principal)

== ENCOUNTER 2019-09-12 20:18 | Emergency (ER) | payer OTHER ==
[~2019-09-12] VITALS: Ht 170.2 cm; Wt 81.6 kg
[2019-09-12 20:28] VITALS: Ht 170.2 cm; Wt 81.6 kg
[2019-09-12 21:07] LABS: BASOPHIL % 0.4 % (0-2); PLATELET COUNT 394 x10^3mcL (130-400); RED CELL DISTRIBUTION WIDTH 14.4 % (11.5-14.5)
[2019-09-12 21:47] LABS: CK-MB 0.5 ng/mL (0-3.6)
[2019-09-12 21:54] LABS: ALKALINE PHOSPHATASE 96 U/L (46-116); ALT/SGPT 9 U/L (16-63); AST/SGOT 10 U/L (15-37); BILIRUBIN TOTAL 0.4 mg/dL (0.20-1.00); C REACTIVE PROTEIN 3.3 mg/dL (<=0.9); CALCIUM 8.8 mg/dL (8.5-10.1); CARBON DIOXIDE 29.2 mmol/L (21-32); CHLORIDE SERUM 104 mmol/L (98-107); CREATININE SERUM 1.1 mg/dL (0.7-1.3); GLUCOSE SERUM 113 mg/dL (74-106); POTASSIUM SERUM 4.1 mmol/L (3.5-5.1); SODIUM SERUM 141 mmol/L (136-145)
[2019-09-12 21:58] LABS: ERYTHROCYTE SED RATE 56 mm/hr (0-20); FREE T4 1.18 ng/dL (0.76-1.46); T4(THYROXINE) 7.4 ug/dL (4.7-13.3)
[2019-09-12 22:01] LABS: T3 TOTAL 0.78 ng/mL
[2019-09-12 22:02] LABS: ALBUMIN 2.8 g/dL (3.4-5.0)
[2019-09-12 23:03] VITALS: BP 112/53
== END 2019-09-12 23:03 | disposition home or self-care (01) ==
LOC: ED 20:18
PROVIDERS: Specialist
DX: J10.1 Influenza due to other identified influenza virus with other respiratory manifestations (principal); I10 Essential (primary) hypertension
CPT/HCPCS: 36415; 36600; 84439; 87804; Q0092